=== PATIENT | male | born 1980 | race Caucasian/White ===

== ENCOUNTER 2024-06-19 09:40 | Emergency (ER) | payer BC ==
[~2024-06-19] VITALS: Ht 172.7 cm; Wt 86.2 kg
[2024-06-19 10:30] LABS: BASOPHILS ABSOLUTE AUTO 0.03 K/mm3 (0.00-0.23); BASOPHILS PERCENT AUTO 1 % (0-2); EOSINOPHILS ABSOLUTE AUTO 0.05 K/mm3 (0.00-0.68); EOSINOPHILS PERCENT AUTO 1 % (0-6); Hematocrit 42.8 % (37.0-53.0); Hemoglobin 15.4 g/dL (13.5-17.5); IMMATURE GRAN PERCENT AUTO 0 % (0-1); LYMPHOCYTES ABSOLUTE AUTO 1.39 K/mm3 (0.84-5.20); LYMPHOCYTES PERCENT AUTO 31 % (21-46); MONOCYTES ABSOLUTE AUTO 0.38 K/mm3 (0.16-1.47); MONOCYTES PERCENT AUTO 9 % (4-13); Mean Corpuscular HGB 30.9 pg (26.0-34.0); Mean Corpuscular Volume 86 fL (80-100); NEUTROPHILS ABSOLUTE AUTO 2.63 K/mm3 (1.96-9.15); NEUTROPHILS PERCENT AUTO 59 % (41-73); Platelet Count 198 K/mm3 (150-400); RDW Coefficient Variation 11.6 % (11.7-14.2); RDW Standard Deviation 36.7 fL (35.1-46.3); Red Blood Cell Count 4.98 M/mm3 (4.30-5.90); White Blood Cell Count 4.48 K/mm3 (4.00-11.30)
[2024-06-19] MEDS ORDERED: Ketorolac Tromethamine 30mg Vial IV ONE (10:55)
[2024-06-19] MEDS ORDERED: NS 1,000 ML IV SCH (10:55)
[2024-06-19 11:08] LABS: Albumin/Globulin Ratio 1.1 (0.8-1.8); Bilirubin, Total 0.4 mg/dL (0.1-1.0); Bun/Creatinine Ratio 21.7 (12.0-20.0); Creatinine, Blood 0.69 mg/dL (0.60-1.20); Globulin, Blood 3.5 g/dL (2.2-4.0); Total Protein, Blood 7.5 g/dL (6.4-8.2)
[2024-06-19 11:14] LABS: C-REACTIVE PROTEIN, EXT RANGE 1.9 mg/dL (0.000-0.300); Magnesium, Blood 2.3 mg/dL (1.6-2.4)
[2024-06-19] MEDS ORDERED: ACET325 PO (13:38)
[2024-06-19] MEDS ORDERED: IBUP400 PO (13:38)
== END 2024-06-19 14:06 | disposition home or self-care (01) ==
LOC: ER 09:40
PROVIDERS: Student in an Organized Health Care Education/Training Program
DX: R07.9 Chest pain, unspecified (principal); M62.830 Muscle spasm of back
CPT/HCPCS: 71046; 80053; 83735; 84484; 85025; 85379; 86140; 93005; 93010; 96374; 99284-25; J1885; J7030